=== PATIENT | female | born 1990 | race American Indian/Alaskan Native ===

== ENCOUNTER 2016-09-26 23:56 | Outpatient (CLI) | payer MEDICAID ==
[2016-09-27 00:38] VITALS: BP 125/66
[2016-09-27 01:08] LABS: Bilirubin,Urine NEG (Negative); Blood,Urine SM (Negative); Ketones,Urine NEG (Negative); Leukocyte Esterase,Urine NEG (Negative); Mucus,Urine FEW /HPF; Nitrite,Urine NEG (Negative); Protein,Urine <15 mg/dL mg/dL (Negative); Urobilinogen,Urine < 2.0 mg/dL (<2.0); WBC,Urine < 1.0 /HPF (0.0-6.0)
--- NOTE | 2016-09-27 01:24 | Event Note ---
Date: 09/27/16 Pt Presented c/o pelvic pressure. IUP@20 weeks by 7 week US at [facility]. Per RN cervix closed. UA normal. +FHT's 150. No bleeding, no leaking allow home. Follow up with your OB immediately for evalaution.
[2016-09-27] MEDS ORDERED: LACTATED RINGERS 500 ML IV ONE (01:27)
== END 2016-09-27 01:31 | disposition home or self-care (01) ==
LOC: TRG 23:56
PROVIDERS: ATTEND Obstetrics & Gynecology
DX: O47.9 False labor, unspecified (principal); Z3A.00 Weeks of gestation of pregnancy not specified
CPT/HCPCS: 81001

== ENCOUNTER 2017-01-27 07:30 | Inpatient (IN) | payer MEDICAID ==
[2017-01-29] MEDS ORDERED: PEPCID IV SCH (11:30)
[2017-01-29] MEDS ORDERED: BICITRA PO NR (11:30)
[2017-01-29] MEDS ORDERED: REGLAN IV SCH (11:30)
[2017-01-29] MEDS ORDERED: PITOCin/NS 20 UNIT/1000ML DRIP 20 UNITS/1,000 ML BAG IV SCH ×2 (12:00→16:00)
--- NOTE | 2017-01-29 12:00 | History and Physical Report ---
History of Present Illness Date of examination: 01/29/17 Date of admission: 01/29/17 11:20 Chief complaint: Repeat C Section History of present illness: Pt is a 26yo BF EDC 02/02/17; EGA 39 3/7 weeks presents for a repeat C Section. She had 2 previous C Sections and received care at [facility] since 22 weeks. course has been unremarkable except for history of HSV with no outbreaks. records are available and GBS is Negative. Past History Past Medical History: migraines Past Surgical History: section (x2) PROPERTY TECHNICIAN History: herpes, trichomonas Family/Genetic History: none Social history: no significant social history, single - Obstetrical History Expected Date of Delivery: 02/02/17 Actual Gestation: 39 Week(s) 3 Day(s) : 3 Medications and Allergies Allergies Allergy/AdvReac Type Severity Reaction Status Date / Time No Known Allergies Allergy Verified 01/29/17 11:30 Home Medications Medication Instructions Recorded Confirmed Last Taken Type No Known Home Medications [No 01/29/17 01/29/17 Unknown History Reported Home Medications] Active Meds: Active Medications Citric Acid/Sodium Citrate (Bicitra) 30 ml PO ONCE ONE Stop: 01/29/17 11:31 Famotidine (Pepcid) 20 mg IV ONCE ONE Stop: 01/29/17 11:31 Lactated Ringer's (Lactated Ringers) 1,000 mls @ 2,250 mls/hr IV PREOP PEG Stop: 01/30/17 12:27 Oxytocin/Sodium Chloride (Pitocin/Ns 20 Unit/1000ml Drip) 20 units in 1,000 mls @ 0 mls/hr IV TITR PEG PRN Reason: As Directed Metoclopramide HCl (Reglan) 10 mg IV ONCE ONE Stop: 01/29/17 11:31 Review of Systems All systems: negative - Vital Signs Vital signs: Vital Signs Temp Pulse Resp BP Pulse Ox 98.2 F 115 H 18 132/83 99 01/29/17 11:44 01/29/17 11:44 01/29/17 11:44 01/29/17 11:44 01/29/17 11:44 Temp Pulse Resp BP Pulse Ox 98.2 F 115 H 18 132/83 99 01/29/17 11:44 01/29/17 11:44 01/29/17 11:44 01/29/17 11:44 01/29/17 11:44 - Physical Exam Breasts: Positive: deferred Cardiovascular: Regular rate Lungs: Positive: Clear to auscultation Abdomen: Positive: normal appearance, soft Genitourinary (Female): Positive: normal external genitalia Uterus: Positive: enlarged Extremities: Positive: normal - Obstetrical FHR: category 1 Uterine Contraction Monitor Mode: External Results Result Diagrams: 01/29/17 12:00 All other labs normal. Assessment and Plan - Patient Problems (1) 39 weeks gestation of Onset Date: 01/29/17 Current Visit: Yes Status: Acute Plan to address problem: A: IUP @ 39 3/7 weeks Previous C Section X 2 P: Admit to L&D for Repeat C Section (2) Previous delivery affecting Onset Date: 01/29/17 Current Visit: Yes Status: Acute
[2017-01-29 12:42] LABS: Basophils % (Auto) 0.4 % (0.0-1.8); Eosinophils % (Auto) 0.6 % (0.0-4.3); Hematocrit 35.6 % (30.3-42.9); Hemoglobin 11.4 gm/dl (10.1-14.3); Mean Corpuscular HGB Conc 32 % (30-34); Mean Corpuscular Volume 78 fl (79-97); Platelet Count 220 K/mm3 (140-440); Red Blood Count 4.59 M/mm3 (3.65-5.03); Red Cell Distribution Width 14.9 % (13.2-15.2)
[2017-01-29] MEDS ORDERED: ANCEF/STERILE WATER 2 GM/20 ML 2 GM/20 ML SYRINGE IV ONE (12:44)
--- NOTE | 2017-01-29 12:45 | Anesthesia Consultation ---
Anesthesia Consult and Med Hx Date of service: 01/29/17 - Airway Anesthetic Teeth Evaluation: Good ROM Head & Neck: Adequate Mental/Hyoid Distance: Adequate Intubation Access Assessment: Probably Good - Pre-Operative Health Status ASA Pre-Surgery Classification: ASA2 Proposed Anesthetic Plan: Epidural, Spinal - Pulmonary Hx Smoking: Yes (former smoker) Hx Asthma: No COPD: No Hx Pneumonia: No - Cardiovascular System Hx Hypertension: No - Central Nervous System Hx Neuromuscular Disorder: Yes (migranes) Hx Seizures: No Hx Psychiatric Problems: No - Endocrine Hx Renal Disease: No Hx End Stage Renal Disease: No Hx Hypothyroidism: No Hx Hyperthyroidism: No - Hematic Hx Anemia: No Hx Sickle Cell Disease: No - Other Systems Hx Alcohol Use: Yes (NONE DURING ) Hx Obesity: Yes (BMI 38.6)
[2017-01-29] MEDS ORDERED: VISTARIL PO PRN (12:47)
[2017-01-29] MEDS ORDERED: NARCAN 0.4 MG/1 ML IV PRN ×2 (12:47→15:17)
[2017-01-29] MEDS ORDERED: BENADRYL IV PRN (12:47)
[2017-01-29] MEDS ORDERED: DILAUDID IV PRN (12:47)
[2017-01-29] MEDS ORDERED: ZOFRAN IV PRN (12:47)
--- NOTE | 2017-01-29 12:47 | Anesthesia Day of Surgery ---
Anesthesia Day of Surgery - Day of Surgery Patient Examined: Yes Patient H&P Reviewed: Yes Patient is NPO: Yes
[2017-01-29 12:59] LABS: Mean Corpuscular Hemoglobin 25 pg (28-32)
[2017-01-29] MEDS ORDERED: LACTATED RINGERS 1,000 ML IV SCH (13:00)
[2017-01-29] MEDS ORDERED: SODIUM CHLORIDE FLUSH SYRINGE 10 ML IV NR (13:00)
[2017-01-29] MEDS ORDERED: MORPHINE ONE (13:36)
[2017-01-29] MEDS ORDERED: WATER FOR IRRIG STERILE IR ONE (13:50)
[2017-01-29] MEDS ORDERED: NACL 0.9% IR ONE (13:50)
[2017-01-29] MEDS ORDERED: ZOFRAN ONE (14:29)
[2017-01-29] MEDS ORDERED: XYLOCAINE MPF 2% ONE ×2 (14:39)
--- NOTE | 2017-01-29 15:11 | Operative Report ---
Operative Report Operative Report: Date of procedure: 01/29/2017 Pre-operative diagnosis: 1. Intrauterine at 39-3/7 weeks 2. Previous section 2 Post-operative diagnosis: Same with extensive lower uterine adhesions Procedure name(s): 1. Repeat low transverse section 2. Lysis of pelvic adhesions Surgeon: Dallas Turner MD Cryogenic Transport Driver: None Anesthesia: Spinal anesthesia by Dr. Bowles EBL: 600 mL's Findings: A 3814 g female Apgars 8 at 1 minute 9 at 5 minutes. Clear amniotic fluid. Extensive lower uterine adhesions. Normal tubes and ovaries bilaterally. Procedure: After the patient was prepped and draped in usual sterile fashion, and after satisfactory level of epidural anesthesia was obtained, the skin knife was used to make a transverse skin incision through the previous skin scars. The incision was excised down to layer of the fascia, which was nicked in the midline and extended laterally using the Bovie cautery. The rectus muscles were dissected off the rectus fascia both superiorly and inferiorly. The rectus bellies in the midline, and the peritoneum was entered under direct visualization. The peritoneal incision was extended superiorly and inferiorly. There was noted to be extensive lower uterine adhesions which was taken down using both sharp and blunt dissection. A bladder flap was created and the bladder blade was then placed. The uterus was scored in a curvilinear linear fashion, entered in the midline revealing clear amniotic fluid. The infant's head was delivered onto the surgical field with the aid of a vacuum, and the oropharynx and nasopharynx were bulb suctioned. The rest of the 's body was delivered, cord which had a true knot, was doubly clamped and cut and the was handed to the waiting respiratory team. The placenta was manually removed from the uterus, and the uterus removed from its normal anatomical position. After gentle uterine lavage, the incision was inspected and found to be without extensions. It was then closed in 2 layers using 0 Vicryl suture in a running interlocking fashion, the second layer imbricating the first. After good hemostasis was achieved, copious amounts or irrigation was performed, and the gutters were suctioned free of blood and blood clots. The Tisseel sealant was sprayed across the uterine incision. The uterus was then returned to its normal anatomical position, and after excellent hemostasis assured, the peritoneum was reapproximated using 3-0 Vicryl suture in a running interlocking fashion, and then the rectus muscles were reapproximated using 3-0 Vicryl suture in a [id number] configuration. The fascia was then reapproximated using 0 Vicryl suture in running interlocking fashion. The subcutaneous layer was made hemostatic using Bovie cautery, the Tisseel sealant was sprayed across the fascial incision, and the subcutaneous layer was reapproximated using 3-0 Vicryl suture and the skin edges reapproximated using 4-0 Vicryl suture in a subcuticular fashion. Patient tolerated the procedure well was transported to recovery in stable condition.
[2017-01-29] MEDS ORDERED: MYLICON PO PRN (15:17)
[2017-01-29] MEDS ORDERED: TUCKS PAD TP PRN (15:17)
[2017-01-29] MEDS ORDERED: MILK OF MAGNESIA PO PRN (15:17)
[2017-01-29] MEDS ORDERED: TYLENOL PO PRN (15:17)
[2017-01-29] MEDS ORDERED: NORCO 5/325 PO PRN (15:17)
[2017-01-29] MEDS ORDERED: LANSINOH TP PRN (15:17)
[2017-01-29] MEDS ORDERED: SODIUM CHLORIDE FLUSH SYRINGE 10 ML IV SCH (16:00)
[2017-01-29] MEDS ORDERED: MORPHINE IV PRN (16:10)
--- NOTE | 2017-01-29 16:10 | Post Anesthesia Evaluation ---
- Post Anesthesia Evaluation Patient Participated: Yes Airway Patent: Yes Stable Respiratory Function: Yes Nausea/Vomiting: No Temp > 96.8F: Yes Pain Manageable: Yes Adequeate Hydration: Yes Anesthesia Complications: No Block Receding Appropriately: Yes Patient on Ventilator: No
[2017-01-29] MEDS: D5LR 1,000 ML IV SCH (17:26)
[2017-01-29] MEDS: BENADRYL PO PRN (18:45)
[2017-01-29] MEDS: TORADOL IV PRN (18:45)
[2017-01-29] MEDS: ANCEF/NS 1 GM/50 ML 1 GM/50 ML BAG IV SCH (21:02)
[2017-01-30] MEDS: TORADOL IV PRN (01:54)
[2017-01-30] MEDS: BENADRYL PO PRN (01:54)
[2017-01-30] MEDS: D5LR 1,000 ML IV SCH (01:54)
[2017-01-30] MEDS: ANCEF/NS 1 GM/50 ML 1 GM/50 ML BAG IV SCH (04:47)
[2017-01-30] MEDS ORDERED: BOOSTRIX IM ONE (06:00)
[2017-01-30 06:53] LABS: Hematocrit 28.6 % (30.3-42.9); Hemoglobin 9.4 gm/dl (10.1-14.3)
--- NOTE | 2017-01-30 08:53 | Progress Note ---
Assessment and Plan - Patient Problems (1) 39 weeks gestation of Onset Date: 01/29/17 Current Visit: Yes Status: Resolved (2) Previous delivery affecting Onset Date: 01/29/17 Current Visit: Yes Status: Resolved (3) Status post repeat low transverse section Onset Date: 01/30/17 Current Visit: Yes Status: Resolved Plan to address problem: A: S/P Repeat C Section - POD #1 Doing well P: Continue RPOC Anticipate discharge to home in 24-48hrs Subjective - Subjective Date of service: 01/30/17 Principal diagnosis: s/p Repeat C Section - POD #1 Interval history: Pt is feeling well without complaints except vagina is swollen. Tolerating a liquid diet without nausea or vomiting, ambulating and voiding without difficulty. Patient reports: appetite normal, voiding normally, pain well controlled, flatus , ambulating normally [place]: doing well, nursing well Objective - Vital Signs Latest vital signs: Vital Signs Temp Pulse Pulse Resp BP BP Pulse Ox 01/30/17 04:35 98.3 F 105 H 20 136/69 01/29/17 23:45 98.7 F 96 H 20 133/76 01/29/17 20:10 99.1 F 96 H 20 119/61 01/29/17 18:45 20 01/29/17 16:45 97.6 F 81 20 127/61 01/29/17 16:30 96.4 F L 01/29/17 16:20 88 12 124/75 100 01/29/17 16:15 86 16 124/75 100 01/29/17 16:10 85 11 L 107/63 100 01/29/17 16:05 91 H 21 115/75 99 01/29/17 16:00 85 18 124/73 98 01/29/17 15:55 83 10 L 111/64 99 01/29/17 15:50 91 H 22 114/68 98 01/29/17 15:45 89 18 123/73 99 01/29/17 15:40 102 H 11 L 110/81 100 01/29/17 15:35 80 13 110/81 100 01/29/17 15:30 101 H 15 110/69 100 01/29/17 15:25 97.6 F 87 18 113/63 100 01/29/17 15:20 100 01/29/17 13:06 114 H 98 01/29/17 13:01 106 H 98 01/29/17 12:56 106 H 100 01/29/17 12:51 94 H 98 01/29/17 12:46 102 H 98 01/29/17 12:41 98 H 98 01/29/17 12:36 91 H 98 01/29/17 12:31 95 H 98 01/29/17 12:26 107 H 97 01/29/17 12:21 97 H 98 01/29/17 11:44 98.2 F 115 H 18 132/83 99 Intake and Output 01/29/17 01/30/17 01/30/17 22:59 06:59 14:59 Intake Total 1690 1730 Output Total 650 500 Balance 1040 1230 Intake: IV 1450 1250 ANCEF/NS 1 GM/50 ML 1 gm 100 In 50 ml @ 100 mls/hr IV Q8H PEG Rx#:[id number] D5lr 1,000 ml @ 125 mls/ 325 1250 hr IV DIRECT PEG Rx#: [id number] Right Forearm 125 Oral 240 480 Output: Urine 650 500 Indwelling Catheter 400 500 Other: Total, Intake Amount 240 240 Total, Output Amount 400 500 Estimated Blood Loss 600 - Exam Cardiovascular: Present: Regular rate Lungs: Present: Clear to auscultation Abdomen: Present: normal appearance, soft Uterus: Present: normal, firm, fundal height below umbilicus Extremities: Present: normal Incision: Present: normal, dry, intact, dressed - Labs Labs: Abnormal lab results 01/29/17 01/30/17 Range/Units 12:00 05:45 Hgb 9.4 L (10.1-14.3) gm/dl Hct 28.6 L D (30.3-42.9) % MCV 78 L (79-97) fl MCH 25 L (28-32) pg Lymph % (Auto) 37.7 H (13.4-35.0) % Laboratory Tests 01/29/17 01/29/17 01/30/17 11:50 12:00 05:45 WBC 6.0 RBC 4.59 Hgb 11.4 9.4 L Hct 35.6 28.6 L D MCV 78 L MCH 25 L MCHC 32 RDW 14.9 Plt Count 220 Lymph % (Auto) 37.7 H [place] % (Auto) 6.6 Eos % (Auto) 0.6 Baso % (Auto) 0.4 Lymph # 2.3 [place] # 0.4 Eos # 0.0 Baso # 0.0 Seg Neutrophils % 54.7 Seg Neutrophils # 3.3 Hep Bs Antigen Blood Type B POSITIVE Antibody Screen TNR DORITA Antibody Screen Negative 01/30/17 05:45 WBC RBC Hgb Hct MCV MCH MCHC RDW Plt Count Lymph % (Auto) [place] % (Auto) Eos % (Auto) Baso % (Auto) Lymph # [place] # Eos # Baso # Seg Neutrophils % Seg Neutrophils # Hep Bs Antigen Non-reactive Blood Type Antibody Screen DORITA Antibody Screen
[2017-01-30] MEDS: FEOSOL PO SCH (09:04)
[2017-01-30] MEDS: PRENATAL VITAMIN PO SCH (09:05)
--- NOTE | 2017-01-30 10:12 | Progress Note ---
Subjective Date of service: 01/30/17 Principal diagnosis: s/p Repeat C Section - POD #1 Interval history: 1st POD after repeat Patient is in the bed, comfortable. Pain is well controlled with pain meds. Ambulated well. No residual neurological deficit. No anesthesia complications Objective - Constitutional Vitals: Vital Signs - 12hr 01/29/17 01/30/17 01/30/17 23:45 04:35 07:58 Temperature 98.7 F 98.3 F 98.5 F Pulse Rate [ 96 H 105 H 86 Right From Monitor] Respiratory 20 20 20 Rate Blood Pressure 133/76 136/69 120/64 [Left Arm] - Labs CBC & Chem 7: 01/30/17 05:45 Labs: Abnormal lab results 01/29/17 01/30/17 Range/Units 12:00 05:45 Hgb 9.4 L (10.1-14.3) gm/dl Hct 28.6 L D (30.3-42.9) % MCV 78 L (79-97) fl MCH 25 L (28-32) pg Lymph % (Auto) 37.7 H (13.4-35.0) %
[2017-01-30] MEDS: MOTRIN PO PRN (11:15)
[2017-01-30] MEDS: PERCOCET 5/325 PO PRN ×2 (11:15→20:09)
[2017-01-30] MEDS ORDERED: M-M-R II VACCINE SUB-Q ONE (15:18)
[2017-01-31] MEDS: MOTRIN PO PRN ×3 (00:57→14:08)
--- NOTE | 2017-01-31 07:21 | Progress Note ---
Assessment and Plan POD # 2 s/p Rpt LTCS -Doing well P: -Discharged home per request -Follow-Up in clinic in 1-2 weeks for inspection of incision - Patient Problems (1) Status post repeat low transverse section Onset Date: 01/30/17 Current Visit: Yes Status: Resolved Subjective - Subjective Date of service: 01/31/17 Principal diagnosis: s/p Repeat C Section - POD #2 Interval history: Patient seen and examined, stable doing well. Has no complaints desires discharge home today Patient reports: appetite normal, voiding normally, pain well controlled, flatus , ambulating normally, no dizzy ambulation, no nauseated : doing well Objective - Vital Signs Latest vital signs: Vital Signs Temp Pulse Resp BP 01/31/17 00:22 98.3 F 97 H 18 143/79 01/30/17 15:58 97.7 F 90 20 122/60 01/30/17 11:28 98.1 F 90 20 112/54 01/30/17 07:58 98.5 F 86 20 120/64 Intake and Output 01/30/17 01/31/17 01/31/17 22:59 06:59 14:59 Intake Total 480 480 Balance 480 480 Intake: Oral 480 120 Intake, Free Water 360 Other: Total, Intake Amount 360 120 # Voids Void 1 1 - Exam Abdomen: Present: normal appearance, soft. Absent: distention, tenderness, guarding, rigidity
--- NOTE | 2017-01-31 07:24 | Discharge Summary ---
Providers - Providers Date of Admission: 01/29/17 11:20 Date of discharge: 01/31/17 Attending physician: RUBÉN ELLIS Primary care physician: RUBÉN ELLIS Hospitalization Reason for admission: section Delivery: Procedure: repeat low transverse (3rd repeat) Other procedures: none complications: none Discharge diagnosis: IUP at term delivered baby: female Hospital course: Uncomplicated hospital course Condition at discharge: Good Disposition: DISCHARGED TO HOME OR SELFCARE - Discharge Diagnoses (1) Status post repeat low transverse section Status: Resolved Plan - Discharge Medications Prescriptions: Ferrous Sulfate [Feosol 325 MG tab] 325 mg PO BID #60 tablet HYDROcodone/APAP 5-325 [[place] 5/325] 1 each PO Q6HR PRN #30 tablet PRN Reason: Pain Ibuprofen [Motrin] 800 mg PO Q8HR PRN #30 tablet PRN Reason: Moder Pain Unrelieved By [place] Vit W-Ca,Fe,FA(<1 mg) [ Vitamins] 1 each PO DAILY #30 tablet - Provider Discharge Summary Activity: no sex for 6 weeks, no heavy lifting 4 weeks, no strenuous exercise Diet: routine Additional instructions: [] Smoking cessation referral if applicable(refer to patient education folder for contact #) [] Refer to [facility]'s [facility] Booklet Call your doctor immediately for: * Fever > 100.5 * Heavy vaginal bleeding ( >1 pad per hour) * Severe persistent headache * Shortness of breath * Reddened, hot, painful area to leg or breast * Drainage or odor from incision. * Keep incision clean and dry at all times and follow doctor's instructions regarding bathing/showering - Follow up plan Follow up: RUBÉN ELLIS MD [Primary Care Provider] - 7 Days
[2017-01-31] MEDS: PRENATAL VITAMIN PO SCH (08:19)
[2017-01-31] MEDS: FEOSOL PO SCH (08:19)
[2017-01-31] MEDS: PERCOCET 5/325 PO PRN ×2 (08:25→14:06)
[2017-01-31] MEDS ORDERED: M-M-R II VACCINE SUB-Q ONE (10:00)
[2017-01-31 15:01] VITALS: BP 130/72
== END 2017-01-31 16:00 | disposition home or self-care (01) | DRG 765 ==
LOC: APU 01-29 11:20 → OB 01-29 16:53
PROVIDERS: ADMIT Obstetrics & Gynecology; ATTEND Obstetrics & Gynecology
PROC: 10D00Z1 Extraction of Products of Conception, Low, Open Approach (ICD-10-PCS; principal; 2017-01-29)
DX: O34.211 Maternal care for low transverse scar from previous cesarean delivery (principal); O99.354 Diseases of the nervous system complicating childbirth; G43.909 Migraine, unspecified, not intractable, without status migrainosus; O99.214 Obesity complicating childbirth; E66.9 Obesity, unspecified; Z3A.39 39 weeks gestation of pregnancy; Z37.0 Single live birth; Z68.38 Body mass index [BMI] 38.0-38.9, adult; Z87.891 Personal history of nicotine dependence
CPT/HCPCS: 36415; 85014; 85018; 85025; 86706; 86850; 86900; 86901; 99211; C9250; G0463; J0690; J1885; J2270; J2405; J2590; J2765; J7120; J7121; Q0177